=== PATIENT | female | born 1970 | race Two or more races ===

== ENCOUNTER → 2017-06-24 | Outpatient (CLI) | payer OTHER ==
[~2017-06-24] MED LIST: ARIMIDEX PO
== END | disposition home or self-care (01) ==
LOC: EKG 12:40
DX: C50.911 Malignant neoplasm of unspecified site of right female breast (principal)

== ENCOUNTER → 2017-06-24 | Outpatient (CLI) | payer OTHER | END | disposition home or self-care (01) | LOC: RAD 11:02 | DX: C50.911 Malignant neoplasm of unspecified site of right female breast (principal) ==

== ENCOUNTER → 2017-06-30 | Day surgery (SDC) | payer OTHER | END | disposition home or self-care (01) | LOC: CIR.AMB 07:07 | DX: Z90.11 Acquired absence of right breast and nipple (principal); T85.44XA Capsular contracture of breast implant, initial encounter ==

== ENCOUNTER 2022-05-17 06:00 | Day surgery (SDC) | payer OTHER ==
[~2022-05-17] VITALS: Ht 157.5 cm; Wt 76.2 kg
[~2022-05-17 06:00] MED LIST changes: +TAMOXIFEN CITRA20 MG PO
== END 2022-05-17 14:35 | disposition home or self-care (01) ==
LOC: CIR.AMB 06:00
PROVIDERS: ATTEND Plastic Surgery
DX: T85.44XA Capsular contracture of breast implant, initial encounter (principal); Z90.11 Acquired absence of right breast and nipple; N64.89 Other specified disorders of breast; N64.4 Mastodynia; C50.911 Malignant neoplasm of unspecified site of right female breast; Z88.5 Allergy status to narcotic agent; F17.210 Nicotine dependence, cigarettes, uncomplicated; E66.09 Other obesity due to excess calories; Z20.822 Contact with and (suspected) exposure to COVID-19

== ENCOUNTER 2022-07-23 07:34 | Outpatient (CLI) | payer OTHER | END 2022-07-23 07:42 | disposition home or self-care (01) | LOC: MAMO-SONO 07:34 | PROVIDERS: ATTEND Surgery | DX: C50.411 Malignant neoplasm of upper-outer quadrant of right female breast (principal); N60.11 Diffuse cystic mastopathy of right breast; N60.12 Diffuse cystic mastopathy of left breast ==